=== PATIENT | female | born 1995 | race African-American/Black ===

== ENCOUNTER 2018-03-20 20:06 | Emergency (ER) | payer MEDICAID ==
[~2018-03-20] VITALS: Ht 264.2 cm; Wt 69.0 kg
[2018-03-20 23:49] LABS: BASOPHILS % 0.5 % (0.0-2.0); EOSINOPHILS % 2.2 % (0.0-5.0); HEMATOCRIT. 33.3 % (36.0-48.0); LYMPHOCYTES % 23.9 % (20.0-50.0); MEAN CORPUSCULAR HEMOGLOBIN 26.7 pg (28.0-32.0); MEAN CORPUSCULAR VOLUME 80.9 fL (81.0-99.0); MEAN PLATELET VOLUME 9.5 fl (7.4-10.4); MONOCYTES % 7.4 % (2.0-8.0); PLATELET 236 x1000/uL (130-400); RED BLOOD CELL COUNT 4.12 mill/uL (4.2-5.4); RED CELL DISTRIBUTION WIDTH 16.8 % (11.6-14.6)
[2018-03-20 23:54] LABS: CHLORIDE 104 mEq/L (98-107)
[2018-03-21 00:17] LABS: B-HCG QUANTITATIVE 23550 mIU/mL (<3)
[2018-03-21] MEDS ORDERED: ACETAMINOPHEN 325MG TABLET PO ONE (02:15)
[2018-03-21 02:28] LABS: CLARITY URINE CLOUDY (CLEAR); COLOR URINE YELLOW (YELLOW); KETONES URINE TRACE (NEGATIVE); LEUKOCYTE ESTERASE URINE 3+ (NEGATIVE); NITRITE URINE NEGATIVE (NEGATIVE); OCCULT BLOOD URINE 2+ (NEGATIVE); PROTEIN URINE TRACE (NEGATIVE); SPECIFIC GRAVITY URINE 1.026 (1.005-1.030)
[2018-03-21 04:20] VITALS: BP 110/59
== END 2018-03-21 04:20 | disposition home or self-care (01) ==
LOC: ER 21:18
DX: O20.0 Threatened abortion (principal); O26.891 Other specified pregnancy related conditions, first trimester; O23.41 Unspecified infection of urinary tract in pregnancy, first trimester; Z3A.01 Less than 8 weeks gestation of pregnancy; Z87.891 Personal history of nicotine dependence
CPT/HCPCS: 36415; 76801; 80053; 81003; 81025; 84702; 85025; 86850; 86900; 87086; 99285

== ENCOUNTER 2018-08-09 23:42 | Observation (INO) | payer MEDICAID ==
[~2018-08-09] VITALS: Ht 172.7 cm; Wt 77.1 kg
[2018-08-10 01:00] LABS: CLARITY URINE CLEAR (CLEAR); COLOR URINE YELLOW (YELLOW); KETONES URINE NEGATIVE (NEGATIVE); LEUKOCYTE ESTERASE URINE 1+ (NEGATIVE); NITRITE URINE NEGATIVE (NEGATIVE); OCCULT BLOOD URINE NEGATIVE (NEGATIVE); PH URINE 6.5 (4.5-8.0); PROTEIN URINE NEGATIVE (NEGATIVE); UROBILINOGEN URINE 0.2 E.U./dL (0.2-1.0)
[2018-08-10] MEDS ORDERED: PNV1TABL76 MT (01:02)
[2018-08-10] MEDS ORDERED: ACETAMINOPHEN 500MG TABLET PO ONE (01:15)
[2018-08-10] MEDS ORDERED: LACTATED RINGERS 1,000 ML IV SCH (03:15)
[2018-08-10] MEDS ORDERED: NITROFURANTOIN 100MG M/M CAPSULE PO SCH (15:30)
== END 2018-08-10 01:00 | disposition home or self-care (01) ==
LOC: L&D 23:42
PROVIDERS: ADMIT Obstetrics & Gynecology; ATTEND Obstetrics & Gynecology
DX: O42.912 Preterm premature rupture of membranes, unspecified as to length of time between rupture and onset of labor, second trimester (principal); O26.892 Other specified pregnancy related conditions, second trimester; R10.9 Unspecified abdominal pain; Z3A.27 27 weeks gestation of pregnancy
CPT/HCPCS: 76805; 76817; 81003; G0378; J7120; 96360; 96361

== ENCOUNTER 2018-11-05 13:21 | Inpatient (IN) | payer MEDICAID ==
[~2018-11-05] VITALS: Ht 172.7 cm; Wt 86.2 kg
[~2018-11-05 13:21] MED LIST: PNV1TABL76 MT
[2018-11-05] MEDS ORDERED: DEXT 5%/LR + PITOCIN 20UNITS/L 1,000 ML IV SCH ×2 (13:40→20:26)
[2018-11-05] MEDS ORDERED: METHYLERGONOVINE MALEATE 0.2 MG/ML IM PRN ×2 (13:45→20:30)
[2018-11-05] MEDS ORDERED: LIDOCAINE HCL 1% 20ML VIAL (Pyxis) INJ INFIL NR (13:45)
[2018-11-05] MEDS ORDERED: NALOXONE HCL 0.4 MG/ML 1ML VIAL IM PRN (13:45)
[2018-11-05] MEDS ORDERED: BUTORPHANOL TARTRATE 2 MG/ML VIAL IV PRN (13:45)
[2018-11-05] MEDS ORDERED: CARBOPROST TROMETHAMINE 250 MCG/ML AMPUL IM PRN (13:45)
[2018-11-05] MEDS ORDERED: PENICILLIN G POTASSIUM 5 MMU in DEXT 5% WATER 100 ML IV NR (14:00)
[2018-11-05] MEDS: LACTATED RINGERS 1,000 ML IV SCH ×2 (14:21→15:39)
[2018-11-05 14:37] LABS: CLARITY URINE CLEAR (CLEAR); COLOR URINE YELLOW (YELLOW); KETONES URINE NEGATIVE (NEGATIVE); LEUKOCYTE ESTERASE URINE 2+ (NEGATIVE); NITRITE URINE NEGATIVE (NEGATIVE); OCCULT BLOOD URINE NEGATIVE (NEGATIVE); PROTEIN URINE NEGATIVE (NEGATIVE); SPECIFIC GRAVITY URINE 1.007 (1.005-1.030); UROBILINOGEN URINE 0.2 E.U./dL (0.2-1.0)
[2018-11-05 14:38] LABS: INR 0.9; PROTHROMBIN TIME 9.1 sec (9.1-11.1)
[2018-11-05] MEDS ORDERED: BUPIVACAINE HCL/PF 0.25% (2.5MG/ML) 10ML ONE (14:38)
[2018-11-05] MEDS ORDERED: BUPIVACAINE HCL/NS/PF EPIDURAL 100 ML EP ONE (14:38)
[2018-11-05 14:39] LABS: BASOPHILS % 0.3 % (0.0-2.0); EOSINOPHILS % 1.8 % (0.0-5.0); HEMATOCRIT. 29.5 % (36.0-48.0); HEMOGLOBIN. 9.5 g/dL (12.0-16.0); MEAN CORPUSCULAR HEMOGLOBIN 24.5 pg (28.0-32.0); MEAN CORPUSCULAR VOLUME 76.4 fL (81.0-99.0); MEAN PLATELET VOLUME 9.1 fl (7.4-10.4); MONOCYTES % 8.3 % (2.0-8.0); NEUTROPHILS % 73.6 % (40.0-76.0); PLATELET 197 x1000/uL (130-400); RED BLOOD CELL COUNT 3.86 mill/uL (4.2-5.4); RED CELL DISTRIBUTION WIDTH 16.2 % (11.6-14.6)
[2018-11-05] MEDS ORDERED: FENTANYL CITRATE/PF 50MCG/ML 2ML VIAL ONE ×2 (14:39→19:25)
[2018-11-05 14:56] LABS: *AMPHETAMINES SCREEN URINE NEGATIVE (NEGATIVE); PHENCYCLIDINE URINE SCREEN NEGATIVE (NEGATIVE)
[2018-11-05 14:57] LABS: *BARBITURATES SCREEN URINE NEGATIVE (NEGATIVE); *BENZODIAZEPINES SCREEN URINE NEGATIVE (NEGATIVE); *COCAINE SCREEN URINE NEGATIVE (NEGATIVE); METHADONE URINE SCREEN NEGATIVE (NEGATIVE); OPIATES URINE SCREEN NEGATIVE (NEGATIVE)
[2018-11-05 15:00] LABS: CANNABINOID URINE SCREEN PRESUMTIVE POSITIVE (NEGATIVE)
[2018-11-05] MEDS ORDERED: INFLUENZA VIRUS VACCINE(AFLURIA) 0.5ML SYR IM ONE (15:00)
[2018-11-05 15:10] LABS: HEPATITIS B SURFACE ANTIGEN NEGATIVE
[2018-11-05] MEDS ORDERED: ONDANSETRON HCL 4MG/2ML INJ IV PRN (16:00)
[2018-11-05] MEDS ORDERED: BUPIVACAINE HCL/NS/PF EPIDURAL 100 ML EP SCH (16:00)
[2018-11-05] MEDS ORDERED: PENICILLIN G POTASSIUM 2.5 MMU in DEXTROSE 5% WATER 50 ML IV SCH (18:00)
[2018-11-05] MEDS ORDERED: LIDOCAINE HCL/PF 1% 10 MG/ML 5ML VIAL ONE (19:26)
[2018-11-05] MEDS ORDERED: RHO(D) IMMUNE GLOBULIN 300 MCG/SYR IM PRN (20:30)
[2018-11-05] MEDS ORDERED: LANOLIN OINT 0.25 GM TUBE TOP PRN (20:30)
[2018-11-05] MEDS ORDERED: IBUPROFEN 400MG TABLET PO PRN (20:30)
[2018-11-05 21:40] VITALS: BP 140/65
[2018-11-05 22:20] VITALS: BP 127/51
[2018-11-05 23:00] VITALS: BP 126/53
[2018-11-06 05:00] VITALS: BP 118/56
[2018-11-06 07:17] LABS: BASOPHILS % 0.3 % (0.0-2.0); EOSINOPHILS % 1.2 % (0.0-5.0); HEMATOCRIT. 26.1 % (36.0-48.0); HEMOGLOBIN. 8.4 g/dL (12.0-16.0); MEAN CORPUSCULAR HEMOGLOBIN 24.6 pg (28.0-32.0); MEAN CORPUSCULAR VOLUME 76.1 fL (81.0-99.0); MEAN PLATELET VOLUME 8.9 fl (7.4-10.4); MONOCYTES % 6.6 % (2.0-8.0); NEUTROPHILS % 78.9 % (40.0-76.0); PLATELET 177 x1000/uL (130-400); RED BLOOD CELL COUNT 3.43 mill/uL (4.2-5.4)
[2018-11-06 07:39] VITALS: BP 118/53
[2018-11-06] MEDS ORDERED: PRENATAL VIT/FE FUMARATE/FA TABLET PO SCH (09:00)
[2018-11-06] MEDS: IBUPROFEN 800MG TABLET PO PRN ×2 (09:14→17:13)
[2018-11-06 16:04] VITALS: BP 125/53
[2018-11-06 20:00] VITALS: BP 120/60
[2018-11-06 23:45] VITALS: BP 124/49
[2018-11-07 00:11] VITALS: BP 125/53
[2018-11-07] MEDS: IBUPROFEN 800MG TABLET PO PRN (00:11)
[2018-11-07 06:37] LABS: BASOPHILS % 0.4 % (0.0-2.0); EOSINOPHILS % 3.2 % (0.0-5.0); HEMATOCRIT. 26.3 % (36.0-48.0); HEMOGLOBIN. 8.4 g/dL (12.0-16.0); LYMPHOCYTES % 21.6 % (20.0-50.0); MEAN CORPUSCULAR HEMOGLOBIN 24.5 pg (28.0-32.0); MEAN CORPUSCULAR VOLUME 76.7 fL (81.0-99.0); MONOCYTES % 6.8 % (2.0-8.0); PLATELET 198 x1000/uL (130-400); RED BLOOD CELL COUNT 3.42 mill/uL (4.2-5.4); RED CELL DISTRIBUTION WIDTH 16.2 % (11.6-14.6)
[2018-11-07 08:00] VITALS: BP 114/53
== END 2018-11-07 11:30 | disposition home or self-care (01) | DRG 560 ==
LOC: OB TRIAGE 13:21 → OBSVTOIN 13:21 → 8 EST LDRP 13:38 → 8EST 21:40
PROVIDERS: ADMIT Obstetrics & Gynecology; ATTEND Obstetrics & Gynecology
PROC: 3E0R3BZ Introduction of Anesthetic Agent into Spinal Canal, Percutaneous Approach (ICD-10-PCS; 2018-11-05)
PROC: 00HU33Z Insertion of Infusion Device into Spinal Canal, Percutaneous Approach (ICD-10-PCS; 2018-11-05)
PROC: 10E0XZZ Delivery of Products of Conception, External Approach (ICD-10-PCS; principal; 2018-11-05 19:59)
DX: O99.824 Streptococcus B carrier state complicating childbirth (principal); D64.9 Anemia, unspecified; Z37.0 Single live birth; Z3A.39 39 weeks gestation of pregnancy; O90.81 Anemia of the puerperium
CPT/HCPCS: 36415; 80305; 86592; 86703; 86762; 86850; 86900; 87186; 87340; 99281; J2540; J2590; J3010; J3490; J7060; J7120; A4315